=== PATIENT | male | born 1975 | race African-American/Black ===

== ENCOUNTER 2019-12-27 16:15 | Emergency (ER) | payer SELFPAY ==
[2019-12-27 16:17] VITALS: BP 129/80; PULSE 102; RESP 30; TEMP 36.6; O2SAT 96
--- NOTE | 2019-12-27 16:17 | ED.OVERDOSE ---
HPI - Overdose General Chief Complaint: Overdose Stated Complaint: overdose - resolved Time Seen by Provider: 12/27/19 16:23 Source: patient and RN notes reviewed Mode of arrival: EMS Limitations: no limitations History of Present Illness HPI Narrative: A 44 y/o male presents to the ED via EMS from his friends house after accidentally overdosing just [employer]. Per EMS states that the pt's family called them and said that the pt became unresponsive, so they gave him 4 mg of intranasal Narcan and started CPR. They then call PD who gave the pt 4 mg intranasal Narcan with no relief. When EMS arrived they gave the pt 2 mg of intranasal Narcan with no relief. They then gave the pt 2 mg of Narcan IV and the pt became responsive. The pt denies any drug use or any N/V/D, ABD pain, CP, SOB, or any medical complaints at this time. complaint: accidental overdose Onset (ago): minute(s) Timing confirmed by: family member Intent: unwilling to say How Overdose Was Discovered: family/friend present at time Treatments Prior to Arrival: narcan (12 mg intranasal and 2 mg IV) Related Data Home Medications Medication Instructions Recorded Confirmed No Home Medications 12/27/19 12/27/19 Allergies Allergy/AdvReac Type Severity Reaction Status Date / Time No Known Allergies Allergy Verified 12/27/19 16:25 Review of Systems Review of Systems: All systems reviewed & are unremarkable except as noted in HPI and below Cardiovascular: Cardiovascular: Denies chest pain Respiratory: Respiratory: Denies dyspnea Gastrointestinal: Gastrointestinal: Denies abdominal pain, Denies diarrhea, Denies nausea and Denies vomiting Neurologic: Reports other (Accidental OD/becoming unresponsive (resolved)) PMFSH Past Medical History Medical History (Updated 12/27/19 @ 16:41 by Elsie River MD) Medical history unknown Surgical History Surgical History (Updated 12/27/19 @ 16:41 by Eduardo Curry) Surgical history unknown Social History Social History Smoking status: Never smoker Exam Narrative: Exam Narrative: General appearance: Well-developed, well-nourished Skin: Normal color Head: Normocephalic, nontraumatic Eyes: Clear conjunctiva ENT: Oropharynx normal, ears normal, nose normal Neck: Supple, nontender Chest and respiratory: Airway patent, no respiratory distress, no accessory muscle use Heart: Regular rate/rhythm Abdomen: Soft, nontender, no organomegaly, quiet bowel sounds Vascular: Normal peripheral pulses, normal capillary refill. Musculoskeletal: Normal range of motion, nontender back Neurologic: Alert and oriented ?3, PROP DRAWER is normal as tested, no gross motor deficit Course Course Emergency Course: Improved Vital Signs Vital signs: Vital Signs Temperature 36.6 C 12/27/19 16:17 Pulse Rate 102 H 12/27/19 16:17 Respiratory Rate 30 H 12/27/19 16:17 Blood Pressure 129/80 12/27/19 16:17 Pulse Oximetry 96 12/27/19 16:17 Temperature 36.6 C 12/27/19 16:17 Pulse Rate 102 H 12/27/19 16:17 Respiratory Rate 30 H 12/27/19 16:17 Blood Pressure 129/80 12/27/19 16:17 Pulse Oximetry 96 12/27/19 16:17 MDM - Overdose MDM Narrative Medical decision making narrative: Patient denied using drugs, patient was unresponsive and after 12 mg of Narcan patient is back to normal. Labs, urine drug screen and alcohol level ordered. Patient declined any blood work-up or labs. And would like to go home. I believe patient try to avoid urine drug screen to show that he is not drug user. Patient is awake, alert and oriented x4, denying any suicidal or homicidal ideation, Differential Diagnosis Differential diagnosis: Likely other (Drug abuse,)
--- NOTE | 2019-12-27 16:31 | ECG_ITS ---
Measurements Intervals [place] Rate: 102 P: 69 GA: 147 QRS: 7 QRSD: 93 T: 1 QT: 359 QTc: 468 Interpretive Statements SINUS TACHYCARDIA POSSIBLE LEFT ATRIAL ENLARGEMENT BORDERLINE T WAVE ABNORMALITY- INFERIOR LEADS BORDERLINE ECG Electronically Signed On 12-27-2019 19:47:16 CDT by David Rosenthal D.O.
[2019-12-27 16:35] VITALS: BP 123/78; PULSE 102; RESP 18; O2SAT 98
== END 2019-12-27 16:35 | disposition left against medical advice (07) ==
LOC: ANHED 16:44
PROVIDERS: Emergency Provider Emergency Medicine
DX: T50.901A Poisoning by unspecified drugs, medicaments and biological substances, accidental (unintentional), initial encounter (principal); R00.0 Tachycardia, unspecified; R94.31 Abnormal electrocardiogram [ECG] [EKG]
CPT/HCPCS: 93005; 99283

== ENCOUNTER 2023-05-09 00:25 | Emergency (ER) | payer MEDICAID, SELFPAY ==
[2023-05-09] VITALS (9 sets, daily range): BP systolic 129–164; BP diastolic 68–111; PULSE 106–121; RESP 15–23; TEMP 36.4; O2SAT 97–100
--- NOTE | ~2023-05-09 | CT_ITS ---
Clinical Indication: Abdominal pain, vomiting CT Scan of the Chest, Abdomen, and Pelvis with Contrast: Technique: Contiguous sections were acquired throughout the chest, abdomen, and pelvis after intraven ous administration of 100 cc of Omnipaque 350. Dose reduction technique was used on this scan by dev medinaing automated exposure control and iterative reconstruction technique. The dose-length product (DL P) was 558.93 mGy-cm. Findings: There is no evidence of any significant mediastinal, hilar or axillary lymphadenopathy. The mediastin al soft tissues and vascular structures appear normal. Small hiatal hernia noted. There is no evidence of pleural or pericardial effusion. The lungs are clear. No pulmonary nodules or infiltrates are noted. Diffuse fatty infiltration of liver noted. The spleen, pancreas, gallbladder, adrenals and kidneys ar e within normal limits. No evidence of aortic aneurysm. No lymphadenopathy. No bowel obstruction or definite bowel wall thickening. There is no evidence to suggest acute appendi citis. Urinary bladder is unremarkable. Prostate gland and seminal vesicles are unremarkable. Impression: No acute abnormality. Diffuse fatty infiltration of liver. Reviewed, dictated and finalized at location . Impression: No acute abnormality. Diffuse fatty infiltration of liver.
[2023-05-09] MEDS: LACTATED RINGERS 1,000 ML 999 ML IV CONT (00:58)
[2023-05-09] MEDS: ONDANSETRON HCL ODT 4 MG TABLET PO (00:59)
[2023-05-09 01:13] LABS: Basophils Absolute Auto 0.1 K/mm3 (0.0-0.1); Basophils Percent Auto 0.8 % (0.2-1.2); Eosinophils Percent Auto 0.2 % (0-4.4); Hematocrit 48.9 % (42.0-52.0); Hemoglobin 16.6 g/dL (14.0-18.0); Immature Granulocyte Absolute 0.06 K/mm3 (0.00-0.031); Immature Granulocyte Percent A 0.6 % (0-0.5); Lymphocytes Absolute Auto 1.15 K/mm3 (0.9-3.2); Lymphocytes Percent Auto 12.2 % (18.3-44.2); Mean Corpuscular HGB Conc 33.9 g/dl (32-36); Mean Corpuscular Volume 100.2 fl (80-100); Mean Platelet Volume 9.8 fl (7.4-10.4); Monocytes Absolute Auto 0.9 K/mm3 (0.1-0.6); Monocytes Percent Auto 9.7 % (2.6-8.5); Neutrophils Absolute Auto 7.2 K/mm3 (1.3-6.7); Neutrophils Percent Auto 76.5 % (45.5-73.1); Platelet Count Result 324 k/mm3 (150-375); Red Blood Count 4.88 M/mm3 (4.6-6.20); Red Cell Distribution Width 12.7 % (11.5-14.5); White Blood Count 9.4 K/mm3 (4.5-10.0)
[2023-05-09 01:20] LABS: Alanine Aminotransferase 151 U/L (6-50); Albumin Level 5.6 g/dL (3.5-5.1); Alkaline Phosphatase 111 U/L (38-126); Anion Gap 32 mmol/L (8-16); Aspartate Amino Transferase 309 U/L (17-59); Bilirubin,Total 1.3 mg/dL (0.2-1.3); Blood Urea Nitrogen 12 mg/dL (9-20); Calcium 11.8 mg/dL (8.4-10.2); Carbon Dioxide 12 mmol/L (22-30); Chloride 94 mmol/L (98-107); Estimated CRCL calculation 81 ml/min; Estimated Glomerular Filt Rate > 60; Glucose 87 mg/dL (65-110); Lipase 138 U/L (23-300); Potassium 4.3 mmol/L (3.4-5.0); Sodium 138 mmol/L (137-145)
[2023-05-09 01:24] LABS: Lactic Acid Reflex 9.3 mmol/L (0.7-2.0)
--- NOTE | 2023-05-09 01:29 | ECG_ITS ---
Measurements Intervals [place] Rate: 107 P: 69 MS: 116 QRS: 27 QRSD: 86 T: 30 QT: 338 QTc: 452 Interpretive Statements SINUS TACHYCARDIA WITH SHORT MS INTERVAL ABNORMAL ECG COMPARED TO ECG 12/27/2019 16:19:36 NO SIGNIFICANT CHANGES Electronically Signed On 05-09-2023 10:26:55 CDT by Dakota Murguia M.D.
[2023-05-09] MEDS: SODIUM CHLORIDE 0.9% IV 1,000 ML 999 ML IV CONT ×2 (01:46)
[2023-05-09 02:49] LABS: Ethanol 48 mg/dL (<10)
[2023-05-09 02:57] LABS: Creatine Kinase 244 U/L (55-170); Magnesium 1.1 mg/dL (1.6-2.3)
--- NOTE | 2023-05-09 03:19 | ED.NAVMDI ---
HPI - Nausea/Vomiting/Diarrhea General Chief complaint: Nausea/Vomiting/Diarrhea Stated complaint: nausea and vomiting, abd pain Time Seen by Provider: 05/09/23 00:48 Source: patient, RN notes reviewed and old records reviewed Mode of arrival: ambulatory Limitations: clinical condition History of Present Illness HPI Narrative: This is a 48 year old male who presents for evaluation of nausea and vomiting. Patient reports he developed sudden onset nausea and vomiting. He denies abdominal pain but reports cramping all over his body. He has a significant other at bedside and shestates patient was fine 5 hours ago. She denies sick contacts. Patient reports dizziness. Related Data Home Medications Medication Instructions Recorded Confirmed No Home Medications 12/27/19 12/27/19 Allergies Allergy/AdvReac Type Severity Reaction Status Date / Time No Known Allergies Allergy Verified 05/09/23 00:26 Review of Systems Constitutional: Constitutional: Denies weakness Cardiovascular: Cardiovascular: Denies syncope, Denies rapid heart rate, Denies irregular heart rhythm, Denies leg edema and Denies dyspnea Respiratory: Respiratory: Denies chest congestion, Denies hemoptysis, Denies excessive phlegm production and Denies dyspnea Gastrointestinal: Gastrointestinal: Denies abdominal pain, Denies hematochezia, Denies diarrhea and Denies vomiting Genitourinary: Genitourinary: Denies hematuria, Denies dysuria, Denies penile discharge and Denies testicular pain Musculoskeletal: Musculoskeletal: Denies joint swelling, Denies loss of height and Denies muscle weakness Neurologic: Denies syncope, Denies focal weakness and Denies weakness PMFSH Past Medical History Medical History (Updated 05/09/23 @ 04:02 by Amie Tejada MD) Medical history unknown Surgical History Surgical History Surgical history unknown Social History Social History (Updated 05/09/23 @ 05:07 by Amie Tejada MD) Smoking status: Never smoker Alcohol intake: current Exam Const: General: alert and ill appearing Orientation/consciousness: patient oriented x3 Other: appears to be dry heaving and appears uncomfortable HENMT: Head: normal to inspection Mouth: Yes Normal oral and palatal mucosa present, Yes lip normal and Yes moist mucous membranes Eyes: Pupils: Equal, round and reactive pupils present EOM: EOMs intact bilaterally Chest: Chest palpation & inspection: normal inspection of the chest Resp: Effort & Inspection: normal respiratory effort Auscultation: clear to auscultation bilaterally Cardio: Rate: tachycardic Rhythm: regular rhythm Heart sounds: Murmur heart sound present GI: GI Palp: Yes Soft to palpation, No Tenderness to palpation present (GI), No Guarding due to palpation present (GI), No Rigid due to palpation and No Hernia present Auscultation: normal bowel sounds Skin: General skin exam: normal color Rashes: no rashes Wounds: no wounds Neuro: General: patient oriented x3, moves all extremities and CN's II-XI intact bilaterally Extrem: General: normal to inspection Psych: Mental Status: mental status grossly normal Affect: normal affect Attitude: cooperative Course Reevaluation(s) Reevaluation #1: I Discussed with patient that he needs to be admitted to hospital. His significant other states patient has been having blood in his stools for over 1 year. Patient reports his nausea and vomiting having resolved. I stressed that he needs to be admitted. He states he can not stay and he needs to leave for [place] today for a court date. He states he will sign AMA. Date: 05/09/23 Time: 03:53 Vital Signs Vital signs: Vital Signs Temperature 97.5 F L 05/09/23 00:29 Pulse Rate 121 H 05/09/23 00:29 Respiratory Rate 16 05/09/23 00:29 Blood Pressure 129/104 H 05/09/23 00:29 Pulse Oximetry 97 05/09/23 00:29 Temperature 97.5
[2023-05-09] MEDS: MAGNESIUM SULF 4 GM/WATER100ML 4 GM/100 ML BAG IVPB (03:26)
[2023-05-09 03:35] LABS: Amphetamine Screen Urine Negative (Negative); Barbiturate Screen Urine Negative (Negative); Benzodiazepines Screen Urine Negative (Negative); Cannabinoid Screen Urine Negative (Negative); Cocaine Screen Urine Positive (Negative); Methadone Screen Urine Negative (Negative); Opiate Screen Urine Negative (Negative); Phencyclidine Screen Urine Negative (Negative)
[2023-05-09] MEDS: PANTOPRAZOLE SODIUM IV 40 MG VIAL IV PUSH (03:40)
[2023-05-09 03:43] LABS: Appearance Urine Clear (Clear); Bilirubin Urine Negative (Negative); Blood Urine Negative (Negative); Color Urine Yellow (Yellow); Glucose Urine UA Negative (Negative); Ketones Urine 4+ mg/dL (Negative); Leukocyte Esterase Ur Negative LEU/UL (Negative); Nitrate Urine Negative (Negative); Protein Urine Negative (Negative); Urobilinogen Urine 0.2 mg/dL (<2.0); pH Urine 5.5 (5.0-9.0)
[2023-05-09 03:44] LABS: Add Urine Microscopic? NO
[2023-05-09 04:03] LABS: Reflex Lactic Acid Yes or No Add Lactic
--- NOTE | 2023-05-09 04:05 | PC.NURSE ---
Patient seen ambulating from bathroom by ED 15 out of department with significant other. Patient had steady gait.
--- NOTE | 2023-05-11 19:10 | PC.NURSE ---
LATE ENTRY This note is being entered to document information to the patient's record. The following information was omitted on 05/09/2023, by Conchita Glez RN. Patient received 2 grams of Magnesium Sulfate (50 mL) intake and 50 mL wasted. Stop time 0330; patient signed out AMA.
== END 2023-05-09 04:05 | disposition left against medical advice (07) ==
PROVIDERS: Emergency Provider General Practice
DX: K52.9 Noninfective gastroenteritis and colitis, unspecified (principal); E87.21 Acute metabolic acidosis; E83.42 Hypomagnesemia; R74.01 Elevation of levels of liver transaminase levels; R00.0 Tachycardia, unspecified
CPT/HCPCS: 36415; 71260; 74177; 80053; 80307; 81003; 82550; 83605; 83690; 83735; 85025; 85610; 85730; 93005; 96361; 96365; 96374; 96375; 99284; A9270; C9113; J3475; J7030; J7120; Q9967